=== PATIENT | male | born 1995 | race Caucasian/White ===

== ENCOUNTER 2021-10-23 21:58 | Emergency (ER) | payer OTHER ==
[~2021-10-23] VITALS: Ht 170.2 cm; Wt 92.2 kg
[2021-10-23 22:00] VITALS: BP 132/78
[2021-10-23] MEDS ORDERED: FAMO40TA3 PO (22:08)
[2021-10-23] MEDS ORDERED: CETI-24 PO (22:08)
== END 2021-10-24 02:09 | disposition home or self-care (01) ==
LOC: M ED 21:58
DX: R51.9 Headache, unspecified (principal); R05.9 Cough, unspecified; Z20.822 Contact with and (suspected) exposure to COVID-19

== ENCOUNTER → 2021-11-17 | Outpatient (REF) | payer OTHER ==
[~2021-11-17] MED LIST: CETI-24 PO; FAMO40TA3 PO
[2021-11-17 21:54] LABS: RSV AMPLIFICATION NEGATIVE (NEGATIVE)
== END ==
LOC: M WUC 20:29
PROVIDERS: ATTEND Physician Assistant
DX: J06.9 Acute upper respiratory infection, unspecified (principal)

== ENCOUNTER 2021-12-30 15:21 | Emergency (ER) | payer OTHER ==
[~2021-12-30] VITALS: Ht 170.2 cm; Wt 88.5 kg
[2021-12-30] MEDS ORDERED: PRED20TA PO (16:35)
[2021-12-30] MEDS ORDERED: AMOX875T2 PO (16:35)
[2021-12-30 16:47] VITALS: BP 129/85
[2021-12-30] MEDS ORDERED: EPIP0.3I2 IM (16:52)
== END 2021-12-30 16:56 | disposition home or self-care (01) ==
LOC: M ED 15:21
DX: S61.452A Open bite of left hand, initial encounter (principal); S50.811A Abrasion of right forearm, initial encounter; L50.9 Urticaria, unspecified; W55.01XA Bitten by cat, initial encounter; W55.03XA Scratched by cat, initial encounter; Y92.009 Unspecified place in unspecified non-institutional (private) residence as the place of occurrence of the external cause

== ENCOUNTER → 2022-01-27 | Outpatient (CLI) | payer OTHER ==
[~2022-01-27] MED LIST changes: +AMOX875T2 PO; +EPIP0.3I2 IM; +PRED20TA PO
== END ==
LOC: M RAD 13:31
PROVIDERS: ATTEND Student in an Organized Health Care Education/Training Program
DX: M79.645 Pain in left finger(s) (principal)

== ENCOUNTER 2022-09-23 20:07 | Emergency (ER) | payer OTHER ==
[~2022-09-23] VITALS: Ht 170.2 cm; Wt 92.0 kg
[2022-09-23 20:08] VITALS: BP 136/82
[2022-09-23] MEDS ORDERED: KETO10TAB PO (20:38)
[2022-09-23] MEDS ORDERED: KETOROLAC 30 MG/ML 1ML VIAL IM ONE (20:40)
== END 2022-09-23 20:57 | disposition home or self-care (01) ==
LOC: M ED 20:07
DX: S13.4XXA Sprain of ligaments of cervical spine, initial encounter (principal); X58.XXXA Exposure to other specified factors, initial encounter; Y92.89 Other specified places as the place of occurrence of the external cause; Y93.89 Activity, other specified; Y99.8 Other external cause status
CPT/HCPCS: 96372; 99282; J1885

== ENCOUNTER 2022-11-20 21:34 | Emergency (ER) | payer OTHER ==
[~2022-11-20] VITALS: Ht 170.2 cm; Wt 94.6 kg
[~2022-11-20 21:34] MED LIST changes: +KETO10TAB PO
[2022-11-20 21:36] VITALS: BP 121/79
[2022-11-20] MEDS ORDERED: AUGMENTIN 875 MG TAB PO ONE (22:30)
[2022-11-20] MEDS ORDERED: DERMABOND TOPICAL SKIN ADHESIVE TOP ONE (22:50)
[2022-11-20] MEDS ORDERED: AMOX875T2 PO (23:14)
== END 2022-11-20 23:35 | disposition home or self-care (01) ==
LOC: M ED 21:34
DX: S01.311A Laceration without foreign body of right ear, initial encounter (principal); W55.03XA Scratched by cat, initial encounter; Y92.009 Unspecified place in unspecified non-institutional (private) residence as the place of occurrence of the external cause; Y93.89 Activity, other specified; Y99.8 Other external cause status; Z79.899 Other long term (current) drug therapy

== ENCOUNTER 2022-11-23 23:18 | Emergency (ER) | payer OTHER ==
[~2022-11-23] VITALS: Ht 170.2 cm; Wt 95.6 kg
[2022-11-23 23:20] VITALS: BP 135/89
[2022-11-23] MEDS ORDERED: ESCITALOPRAM (23:27)
[2022-11-24 00:23] LABS: HEMATOCRIT 45.5 % (42.0-52.0); HEMOGLOBIN 15.6 g/dl (13.5-17.5); MEAN CORPUSCULAR HGB CONC 34.3 g/dl (32.0-36.5); MEAN CORPUSCULAR VOLUME 87.5 fl (80.0-96.0); PLATELET COUNT, AUTOMATED 241 10^3/uL (150-450); WHITE BLOOD COUNT 12.2 10^3/uL (4.0-10.0)
[2022-11-24 00:41] LABS: ETHYL ALCOHOL (ETHANOL) 0.063 % (0.000-0.010)
[2022-11-24 00:43] LABS: ACETAMINOPHEN LEVEL < 2.0 UG/ML (10.0-20.0); ALBUMIN 4.2 G/DL (3.2-5.2); ALKALINE PHOSPHATASE 81 U/L (46-116); ALT/SGPT 40 U/L (7.0-40); AST/SGOT 33 U/L (<34); BILIRUBIN,DIRECT < 0.1 MG/DL (<0.4); BILIRUBIN,TOTAL 0.2 MG/DL (0.3-1.2); BLOOD UREA NITROGEN 17 MG/DL (9-23); CALCIUM LEVEL 9.8 MG/DL (8.5-10.1); CARBON DIOXIDE LEVEL 22 MMOL/L (20-31); CHLORIDE LEVEL 106 MMOL/L (98-107); CREATININE FOR GFR 1.18 MG/DL (0.70-1.30); GLOMERULAR FILTRATION RATE > 60.0 (>60); GLUCOSE, FASTING 120 MG/DL (60-100); POTASSIUM SERUM 4.1 MMOL/L (3.5-5.1); SALICYLATE LEVEL < 3.0 MG/DL (<30); SODIUM LEVEL 141 MMOL/L (136-145); TOTAL PROTEIN 7.1 G/DL (5.7-8.2)
[2022-11-24 00:45] LABS: THYROID STIMULATING HORMONE 2.375 uIU/ML (0.55-4.78)
[2022-11-24] MEDS ORDERED: LEXA1TAB PO (01:26)
[2022-11-24] MEDS ORDERED: AMOX875T2 PO (01:26)
[2022-11-24] MEDS ORDERED: FAMO1TAB11 PO (01:26)
[2022-11-24] MEDS ORDERED: HOME MED LIST COMPLETE! XX SCH (01:30)
[2022-11-24 01:46] LABS: AMPHETAMINES LEVEL URINE NEGATIVE (NEGATIVE); BARBITURATES URINE NEGATIVE (NEGATIVE); BENZODIAZEPINES URINE NEGATIVE (NEGATIVE); COCAINE METABOLITE URINE NEGATIVE (NEGATIVE); METHADONE URINE NEGATIVE (NEGATIVE); OPIATES URINE NEGATIVE (NEGATIVE)
[2022-11-24 01:47] LABS: CANNABINOIDS URINE NEGATIVE (NEGATIVE); PHENCYCLIDINE URINE NEGATIVE (NEGATIVE)
== END 2022-11-24 06:47 | disposition home or self-care (01) ==
LOC: M ED 23:18
DX: F43.9 Reaction to severe stress, unspecified (principal); R45.88 Nonsuicidal self-harm; F10.129 Alcohol abuse with intoxication, unspecified; Z79.899 Other long term (current) drug therapy